=== PATIENT | female | born 1955 | race Caucasian/White ===

== ENCOUNTER → 2016-12-05 | Outpatient (CLI) | payer OTHER ==
--- NOTE | 2016-12-05 17:15 | US ---
Ultrasound and Venous Duplex Doppler Study of the Right and Left Lower Extremities ICD 10 Diagnostic Codes: R60.9 and T81.9XXA. Clinical History: 61-year-old female with bilateral leg swelling. Rule out DVT. Technique: A high frequency transducer was used for imaging and Doppler study of the veins of the ri ght and left lower extremities. Pulsed Doppler and color Doppler were utilized, along with various maneuvers to assess flow in the veins. Comparison Study: Left leg duplex sonogram, dated August 02, 2016. Findings: RIGHT LEG: The deep veins are normally compressible between the groin and the upper calf, and have no rmal Doppler waveforms. There is no sonographic evidence of deep venous thrombosis. The greater saphe nous vein is compressible. The popliteal fossa is unremarkable. Peripheral edema is noted. LEFT LEG: The deep veins are normally compressible between the groin and the upper calf, and have nor mal Doppler waveforms. There is no sonographic evidence of deep venous thrombosis. The greater saphen ous vein is compressible. The popliteal fossa is unremarkable. Peripheral edema is noted. Impression: There is no sonographic evidence of deep or superficial vein thrombosis in either lower e xtremity. Results were conveyed to Dr. Vela, as requested. A test result has been communicated to a licensed care provider and documented in the [employer] Critical Result system on 12/05/2016 17:11, Message ID [id number].
== END ==
LOC: FIMAGING 16:08
PROVIDERS: ATTEND Radiology Diagnostic Radiology
DX: R60.9 Edema, unspecified (principal); T81.9XXA Unspecified complication of procedure, initial encounter; R41.3 Other amnesia; R53.83 Other fatigue; S09.90XA Unspecified injury of head, initial encounter
CPT/HCPCS: 84144-90; 84402-90

== ENCOUNTER → 2017-07-31 | Outpatient (CLI) | payer OTHER | LOC: GIMAGING 15:33 | PROVIDERS: ATTEND Nurse Practitioner Family | DX: R07.81 Pleurodynia (principal) | CPT/HCPCS: 71101-PO ==

== ENCOUNTER → 2017-11-14 | Outpatient (CLI) | payer OTHER | LOC: FIMAGING 07:41 | PROVIDERS: ATTEND Radiology Diagnostic Radiology | DX: Z01.818 Encounter for other preprocedural examination (principal); I83.819 Varicose veins of unspecified lower extremity with pain ==

== ENCOUNTER 2017-12-05 12:16 | Day surgery (SDC) | payer OTHER ==
[~2017-12-05 12:16] MED LIST: ALTEPLASE 2 MG VIAL IVP PRN; FLUMAZENIL 0.5 MG/5 ML MDV IVP PRN; GLUCAGON HCL 1 MG VIAL IVP PRN; HEPARIN 10,000 UNIT/10 ML MDV (1,000 UNIT/ML) IVP PRN; MEPERIDINE 25 MG/ML SYR IVP PRN; MIDAZOLAM 2 MG/2 ML VIAL IVP PRN; NALOXONE HCL 0.4 MG/ML INJ IVP PRN; NS 1,000 ML IV ONE; ONDANSETRON 4 MG/2 ML VIAL IVP ONE; PROTAMINE SULFATE 50 MG/5 ML VIAL IVP PRN; ceFAZolin 2 GM/SWFI 2 GM/20 ML SYR IVP ONE; fentaNYL 100 MCG/2 ML INJ IVP PRN
[2017-12-05] MEDS ORDERED: LIDO/EPI 1% **for epidural** 30 ML SDV ONE (13:01)
[2017-12-05] MEDS ORDERED: SODIUM TETRADECYL SULFATE 3% 2 ML VIAL IV ONE (13:02)
[2017-12-05 13:22] VITALS: TEMP 99.8
--- NOTE | 2017-12-05 13:55 | PDPROPOC ---
Sedation Plan of Care Sedation Plan of Care: vital signs stable, mental status noted, patient educated of risks, benefits, alternatives, patient can tolerate sedation ASA Classification: ASA 1 Planned drugs: fentanyl, midazolam Mallampati Score: Class 1 Mallampati Reference Image: Patient passed 3-3-2 rule?: Yes
--- NOTE | 2017-12-05 14:01 | PDGENHP ---
History & Physical Chief Complaint: BILATERAL VARICOSE VEINS History of Present Illness: HISTORY OF PREVIOUS LT GSV ABLATION, WHICH ONLY WORKED FOR PROX GSV. LARGE VARICOSE VEINS AND SIGNIFICANT REFLUX BILATERAL. Pertinent Past, Social, Family History: LT KNEE REVISION/REPLACEMENT, LT RIB REMOVAL, LAMINECTOMY L5. CERVIAL FUSION C4-5, C6-7. Relevant Physical Exam: NON SMOKER Cardiorespiratory Assessment: RRR, CTA
[2017-12-05] MEDS ORDERED: fentaNYL 100 MCG/2 ML INJ ONE ×2 (14:12→14:58)
[2017-12-05] MEDS ORDERED: MIDAZOLAM 2 MG/2 ML VIAL ONE ×3 (14:12→14:58)
[2017-12-05] MEDS ORDERED: FLUMAZENIL 0.5 MG/5 ML MDV IVP ONE (14:12)
[2017-12-05] MEDS ORDERED: NALOXONE HCL 0.4 MG/ML INJ ONE (14:12)
[2017-12-05 15:59] VITALS: PULSE 78
[2017-12-05] MEDS ORDERED: HYDROCODONE/APAP 5/325 TAB PO PRN (16:37)
[2017-12-05] MEDS ORDERED: IBUPROFEN 200 MG TAB PO ONE (16:37)
[2017-12-05] MEDS ORDERED: ONDANSETRON DISINTEGRATING 4 MG TAB PO PRN (16:37)
--- NOTE | 2017-12-05 16:41 | PDRADPN ---
Radiology Procedure Note Date of Procedure: 12/05/17 Radiologist: Fernanda Samaniego Anesthesia: IV Sedation (FENTANYL AND VERSED) Pre-op Diagnosis: LLE varicosities Post-op Diagnosis: same Indication: worsening symptoms Procedure: EVLT, phlebectomy, sclerotherapy Finding(s): See report Inf/Abcess present in the surg proc area at time of surgery?: No Complications: none
[2017-12-05 20:45] VITALS: RESP 16
[2017-12-05 20:46] VITALS: BP 101/57; O2SAT 95
== END 2017-12-05 19:36 | disposition home or self-care (01) ==
LOC: FIMAGING 12:16
PROVIDERS: ATTEND Radiology Diagnostic Radiology
PROC: 065Q3ZZ Destruction of Left Saphenous Vein, Percutaneous Approach (ICD-10-PCS; principal; 2017-12-05 16:07)
PROC: 3E033TZ Introduction of Destructive Agent into Peripheral Vein, Percutaneous Approach (ICD-10-PCS; principal; 2017-12-05 16:07)
PROC: 06DQ3ZZ Extraction of Left Saphenous Vein, Percutaneous Approach (ICD-10-PCS; principal; 2017-12-05 16:07)
DX: I83.92 Asymptomatic varicose veins of left lower extremity (principal)
CPT/HCPCS: J0690; J2250; J2310; J3010

== ENCOUNTER 2017-12-12 07:33 | Day surgery (SDC) | payer OTHER ==
[2017-12-12] MEDS ORDERED: SODIUM TETRADECYL SULFATE 3% 2 ML VIAL IV ONE (08:14)
[2017-12-12] MEDS ORDERED: LIDO/EPI 1% **for epidural** 30 ML SDV ONE (08:14)
[2017-12-12] MEDS ORDERED: DEXMEDETOMIDINE IN 0.9 % NACL 50 ML IV SCH (08:30)
[2017-12-12] MEDS ORDERED: GLUCAGON HCL 1 MG VIAL IVP PRN (08:37)
[2017-12-12] MEDS ORDERED: NS 1,000 ML IV ONE (08:37)
[2017-12-12] MEDS ORDERED: MEPERIDINE 25 MG/ML SYR IVP PRN (08:37)
[2017-12-12] MEDS ORDERED: ALTEPLASE 2 MG VIAL IVP PRN (08:37)
[2017-12-12] MEDS ORDERED: ceFAZolin 2 GM/SWFI 2 GM/20 ML SYR IVP ONE (08:37)
[2017-12-12] MEDS ORDERED: HEPARIN 10,000 UNIT/10 ML MDV (1,000 UNIT/ML) IVP PRN (08:37)
[2017-12-12] MEDS ORDERED: PROTAMINE SULFATE 50 MG/5 ML VIAL IVP PRN (08:37)
[2017-12-12] MEDS ORDERED: fentaNYL 100 MCG/2 ML INJ IVP PRN (08:37)
[2017-12-12] MEDS ORDERED: ONDANSETRON 4 MG/2 ML VIAL IVP ONE (08:37)
[2017-12-12] MEDS ORDERED: NALOXONE HCL 0.4 MG/ML INJ IVP PRN (08:37)
[2017-12-12] MEDS ORDERED: MIDAZOLAM 2 MG/2 ML VIAL IVP PRN (08:37)
[2017-12-12] MEDS ORDERED: FLUMAZENIL 0.5 MG/5 ML MDV IVP PRN (08:37)
--- NOTE | 2017-12-12 09:06 | PDPROPOC ---
Sedation Plan of Care Sedation Plan of Care: vital signs stable, mental status noted, patient educated of risks, benefits, alternatives, patient can tolerate sedation ASA Classification: ASA 2 Planned drugs: fentanyl, midazolam, other Mallampati Score: Class 1 Mallampati Reference Image: Patient passed 3-3-2 rule?: Yes
--- NOTE | 2017-12-12 09:18 | PDGENHP ---
History & Physical Chief Complaint: SYMPTOMATIC RLE VARICOSITIES History of Present Illness: LT LEG TREATED 12/05. MODERATE BRUISING, BUT NO LUMPY HEMATOMA. Pertinent Past, Social, Family History: LT BREAST RECONSTRUCTION; RIB RELEASE ( ALL POST TRAUMA), LT KNEE REPLACEMENT, LAMINECTOMY L5. Relevant Physical Exam: RLE VARICOSITIES MAPPED OUT. ADDITIONAL VEINS MAPPED OUT IN LT LEG. Cardiorespiratory Assessment: RRR, CTA
[2017-12-12 09:39] LABS: INR 0.88 (0.83-1.16); PROTIME(PATIENT) 12.2 SEC (12.0-15.0)
[2017-12-12] MEDS ORDERED: IBUPROFEN 200 MG TAB PO ONE (11:36)
[2017-12-12] MEDS ORDERED: HYDROCODONE/APAP 5/325 TAB PO PRN (11:36)
[2017-12-12] MEDS ORDERED: ONDANSETRON DISINTEGRATING 4 MG TAB PO PRN (11:36)
[2017-12-12] MEDS ORDERED: NS 1,000 ML IV SCH (11:45)
--- NOTE | 2017-12-12 11:50 | PDRADPN ---
Radiology Procedure Note Date of Procedure: 12/12/17 Radiologist: Fernanda Samaniego Anesthesia: IV Sedation (precedex, fentanyl, versed) Pre-op Diagnosis: RLE varicose veins Post-op Diagnosis: same Indication: persistant symtoms Procedure: RT leg laser, phlebectomy, sclerotherapy Finding(s): see report Inf/Abcess present in the surg proc area at time of surgery?: No Complications: none immediately.
[2017-12-12 12:08] VITALS: TEMP 97.5
[2017-12-12 15:17] VITALS: BP 88/55; PULSE 66; RESP 12; O2SAT 92
== END 2017-12-12 15:00 | disposition home or self-care (01) ==
LOC: FIMAGING 07:33
PROVIDERS: ATTEND Radiology Diagnostic Radiology
PROC: 3E033TZ Introduction of Destructive Agent into Peripheral Vein, Percutaneous Approach (ICD-10-PCS; principal; 2017-12-12 11:26)
PROC: 065P3ZZ Destruction of Right Saphenous Vein, Percutaneous Approach (ICD-10-PCS; principal; 2017-12-12 11:26)
PROC: 06DY3ZZ Extraction of Lower Vein, Percutaneous Approach (ICD-10-PCS; principal; 2017-12-12 11:26)
DX: I83.891 Varicose veins of right lower extremity with other complications (principal)
CPT/HCPCS: J0690; J2250; J2310; J3010

== ENCOUNTER → 2018-04-02 | Day surgery (SDC) | payer OTHER ==
[~2018-04-02] MED LIST changes: -ALTEPLASE 2 MG VIAL IVP PRN; -FLUMAZENIL 0.5 MG/5 ML MDV IVP PRN; -GLUCAGON HCL 1 MG VIAL IVP PRN; -HEPARIN 10,000 UNIT/10 ML MDV (1,000 UNIT/ML) IVP PRN; -MEPERIDINE 25 MG/ML SYR IVP PRN; -MIDAZOLAM 2 MG/2 ML VIAL IVP PRN; -NALOXONE HCL 0.4 MG/ML INJ IVP PRN; -NS 1,000 ML IV ONE; -ONDANSETRON 4 MG/2 ML VIAL IVP ONE; -PROTAMINE SULFATE 50 MG/5 ML VIAL IVP PRN; +SODIUM TETRADECYL SULFATE 3% 2 ML VIAL IV ONE; -ceFAZolin 2 GM/SWFI 2 GM/20 ML SYR IVP ONE; -fentaNYL 100 MCG/2 ML INJ IVP PRN
== END | disposition home or self-care (01) ==
LOC: FIMAGING 13:41
PROVIDERS: ATTEND Radiology Diagnostic Radiology
PROC: 3E033GC Introduction of Other Therapeutic Substance into Peripheral Vein, Percutaneous Approach (ICD-10-PCS; principal; 2018-04-02)
DX: I83.813 Varicose veins of bilateral lower extremities with pain (principal)

== ENCOUNTER → 2018-08-30 | Day surgery (SDC) | payer OTHER ==
[~2018-08-30] MED LIST changes: +POLIDOCANOL 0.5% 2 ML AMP IV ONE
== END | disposition home or self-care (01) ==
LOC: FIMAGING 14:16
PROVIDERS: ATTEND Radiology Diagnostic Radiology
PROC: 3E033TZ Introduction of Destructive Agent into Peripheral Vein, Percutaneous Approach (ICD-10-PCS; principal; 2018-08-30)
PROC: 3E033TZ Introduction of Destructive Agent into Peripheral Vein, Percutaneous Approach (ICD-10-PCS; 2018-08-30)
DX: I83.93 Asymptomatic varicose veins of bilateral lower extremities (principal)

== ENCOUNTER → 2019-02-06 | Outpatient (CLI) | payer OTHER | LOC: FIMAGING 13:57 | PROVIDERS: ATTEND Internal Medicine | DX: Z12.31 Encounter for screening mammogram for malignant neoplasm of breast (principal); Z98.82 Breast implant status ==

== ENCOUNTER → 2019-03-31 | Outpatient (CLI) | payer OTHER | LOC: FCPNEURO 21:00 ==